=== PATIENT | male | born 1975 | race Caucasian/White ===

== ENCOUNTER 2020-04-02 20:51 | Emergency (ER) | payer MEDICARE, OTHER ==
[~2020-04-02] VITALS: Ht 185.4 cm; Wt 76.5 kg
[2020-04-02 20:53] VITALS: BP 127/77
[2020-04-02] MEDS ORDERED: CARB300C PO ×2 (21:23→21:55)
[2020-04-02] MEDS ORDERED: KEPP10002 PO (21:23)
[2020-04-02] MEDS ORDERED: CARB300C6 PO (22:04)
== END 2020-04-02 22:23 | disposition home or self-care (01) ==
LOC: M ED 20:51
DX: Z76.0 Encounter for issue of repeat prescription (principal)